=== PATIENT | female | born 1975 | race Caucasian/White ===

== ENCOUNTER 2024-04-05 09:05 | Day surgery (SDC) | payer OTHER ==
[2024-04-05] MEDS: Simethicone Drops 40 MG/0.6 ML 30 ML Bottle ONE (08:49)
[~2024-04-05 09:05] MED LIST: Sodium Chloride 0.9% 10 ML Syringe FLUSH PRN
[2024-04-05] MEDS ORDERED: Propofol 200 MG/20 ML SDV IV ONE (09:06)
[2024-04-05] MEDS ORDERED: Lidocaine 2% 100 MG/5 ML Syringe IVPUSH ONE (09:06)
[2024-04-05] MEDS: Lactated Ringers 1,000 ML IV SCH (09:10)
== END 2024-04-05 10:28 | disposition home or self-care (01) ==
LOC: FB.SDS 09:05
PROVIDERS: ATTEND Surgery
DX: Z12.11 Encounter for screening for malignant neoplasm of colon (principal); D12.0 Benign neoplasm of cecum; K57.30 Diverticulosis of large intestine without perforation or abscess without bleeding; Z91.048 Other nonmedicinal substance allergy status; Z79.899 Other long term (current) drug therapy
CPT/HCPCS: 00812; 45385; 81025; 88305; A9270; J2704; J7120